=== PATIENT | male | born 1945 | race Caucasian/White ===

== ENCOUNTER → 2019-10-23 | Outpatient (CLI) | payer OTHER, BC | LOC: ULTRA 08:27 | PROVIDERS: ATTEND Family Medicine | DX: N50.3 Cyst of epididymis (principal); I71.4 Abdominal aortic aneurysm, without rupture; N43.3 Hydrocele, unspecified; N44.2 Benign cyst of testis ==

== ENCOUNTER → 2021-01-22 | Outpatient (CLI) | payer OTHER, MEDICARE | LOC: RAD 09:10 | PROVIDERS: ATTEND Family Medicine | DX: I71.4 Abdominal aortic aneurysm, without rupture (principal) ==